=== PATIENT | female | born 1960 | race Caucasian/White ===

== ENCOUNTER 2018-08-13 16:55 | Outpatient (REF) | payer MEDICARE, MEDICAID, SELFPAY ==
[2018-08-13 19:22] LABS: HCT 37.5 % (36.0-46.0); HGB 12.6 g/dL (12.0-15.5); Mean Corp. HGB Concentration 33.6 g/dL (32.0-36.0); Mean Corpuscular Volume 95.2 fL (80-95); Mean Platelet Volume 9.1 fL (8.0-11.0); Platelet Count 266 x1000/uL (130-400); RBC 3.94 m/cumm (4.00-5.20); RBC Distribution Width 12.6 % (11.7-14.6)
[2018-08-13 19:34] LABS: Anion Gap 7.3 mmol/L (3-11); BUN 20 mg/dL (7-18); CO2 28.7 mmol/L (21.0-32.0); CREATININE 0.66 mg/dL (0.55-1.02); Calcium 8.9 mg/dL (8.5-10.1); Chloride 97 mmol/L (98-107); Glucose 127 mg/dL (70-100); Potassium 4.2 mmol/L (3.5-5.1); Sodium 133 mmol/L (136-145); TROPONIN-I 10.5 ug/mL (4.0-12.0)
[2018-08-15 14:54] LABS: Levetiracetam 13.6 mcg/mL
== END 2018-08-13 17:15 ==
LOC: NCHCN 16:55
PROVIDERS: PCP Internal Medicine; Visit Provider Nurse Practitioner Family
DX: G40.209 Localization-related (focal) (partial) symptomatic epilepsy and epileptic syndromes with complex partial seizures, not intractable, without status epilepticus (principal); Z51.81 Encounter for therapeutic drug level monitoring; Z79.899 Other long term (current) drug therapy; D72.819 Decreased white blood cell count, unspecified; E87.1 Hypo-osmolality and hyponatremia
CPT/HCPCS: 80048; 85027; 80156; 80177

== ENCOUNTER 2019-01-06 15:19 | Outpatient (REF) | payer MEDICARE, MEDICAID, SELFPAY ==
[2019-01-06 21:27] LABS: HCT 37.8 % (36.0-46.0); HGB 12.6 g/dL (12.0-15.5); Mean Corp. HGB Concentration 33.3 g/dL (32.0-36.0); Mean Corpuscular Hemoglobin 31.2 pg (27.0-33.0); Mean Corpuscular Volume 93.6 fL (80-95); Mean Platelet Volume 9.2 fL (8.0-11.0); Platelet Count 285 x1000/uL (130-400); RBC 4.04 m/cumm (4.00-5.20); RBC Distribution Width 12.5 % (11.7-14.6)
[2019-01-06 21:31] LABS: ALT 25 U/L (12-78); AST 14 U/L (15-37); Albumin 3.4 g/dL (3.4-5.0); Alkaline Phosphatase 135 U/L (46-116); Anion Gap 7.2 mmol/L (3-11); BUN 16 mg/dL (7-18); Bilirubin, Total 0.2 mg/dL (0.2-1.0); CO2 28.8 mmol/L (21.0-32.0); CREATININE 0.65 mg/dL (0.55-1.02); Calcium 8.8 mg/dL (8.5-10.1); Chloride 97 mmol/L (98-107); Glucose 96 mg/dL (70-100); Potassium 4.1 mmol/L (3.5-5.1); Sodium 133 mmol/L (136-145); TROPONIN-I 10.6 ug/mL (4.0-12.0); Total Protein 7.2 g/dL (6.4-8.2)
[2019-01-06 21:38] LABS: Folate > 20.0 ng/mL (8.6-20.0)
[2019-01-08 12:11] LABS: Homocysteine 8.5 umol/L (4.5-12.4)
[2019-01-08 16:19] LABS: Levetiracetam 17.6 mcg/mL
[2019-01-12 09:51] LABS: Methylmalonic Acid 0.23 nmol/mL (<=0.40)
== END 2019-01-06 15:39 ==
LOC: NCHCN 15:19
PROVIDERS: PCP Internal Medicine; Visit Provider Internal Medicine
DX: D72.819 Decreased white blood cell count, unspecified (principal); G40.209 Localization-related (focal) (partial) symptomatic epilepsy and epileptic syndromes with complex partial seizures, not intractable, without status epilepticus; G93.1 Anoxic brain damage, not elsewhere classified; Z51.81 Encounter for therapeutic drug level monitoring; Z79.899 Other long term (current) drug therapy
CPT/HCPCS: 80053; 80186; 83090; 85027; 80156; 80177; 82746

== ENCOUNTER 2019-03-16 15:16 | Outpatient (CLI) | payer MEDICARE, MEDICAID, SELFPAY ==
--- NOTE | 2019-03-16 11:23 | DI.RAD_ITS ---
SYMPTOM/DIAGNOSIS: RT HAND PAIN, M79.641 RIGHT HAND: There are mild degenerative changes at the first carpal metacarpal joint as well as interphalangeal joints of the fingers. No erosive or productive changes are seen. The bones appear normally mineralized. IMPRESSION: Mild degenerative changes of the interphalangeal joints of the fingers and first carpal metacarpal joint.
== END 2019-03-16 15:36 ==
PROVIDERS: PCP Internal Medicine; Visit Provider Nurse Practitioner Family
DX: M79.641 Pain in right hand (principal); M19.041 Primary osteoarthritis, right hand; M18.11 Unilateral primary osteoarthritis of first carpometacarpal joint, right hand
CPT/HCPCS: 73130

== ENCOUNTER 2019-04-30 15:19 | Outpatient (REF) | payer MEDICARE, MEDICAID, SELFPAY ==
[2019-04-30 19:33] LABS: Absolute Basophil Count 0.03 k/cumm (0.0-0.2); Absolute Eosinophil Count 0.11 k/cumm (0.0-0.7); Absolute Lymphocyte Count 0.96 k/cumm (1.2-3.4); Absolute Monocyte Count 0.49 k/cumm (0.11-0.7); Basophils % 0.9; Eosinophils % 3.4; HCT 37.3 % (36.0-46.0); HGB 12.4 g/dL (12.0-15.5); Lymphocytes % 30.1; Mean Corp. HGB Concentration 33.2 g/dL (32.0-36.0); Mean Corpuscular Hemoglobin 31.5 pg (27.0-33.0); Mean Corpuscular Volume 94.7 fL (80-95); Mean Platelet Volume 9.4 fL (8.0-11.0); Monocytes % 15.4; Neutrophils % 50.2; Platelet Count 266 x1000/uL (130-400); RBC 3.94 m/cumm (4.00-5.20); RBC Distribution Width 12.5 % (11.7-14.6); White Blood Cell Count 3.19 k/cumm (4.4-10.8)
[2019-04-30 19:36] LABS: ALT 24 U/L (12-78); AST 15 U/L (15-37); Albumin 3.4 g/dL (3.4-5.0); Alkaline Phosphatase 125 U/L (46-116); BUN 15 mg/dL (7-18); Bilirubin, Total 0.2 mg/dL (0.2-1.0); CREATININE 0.66 mg/dL (0.55-1.02); Calcium 8.2 mg/dL (8.5-10.1); Chloride 98 mmol/L (98-107); Glucose 102 mg/dL (70-100); Sodium 133 mmol/L (136-145); TROPONIN-I 10.7 ug/mL (4.0-12.0); Total Protein 7.2 g/dL (6.4-8.2)
[2019-05-03 16:21] LABS: Levetiracetam 15.3 mcg/mL
== END 2019-04-30 15:39 ==
LOC: NCHCN 15:19
PROVIDERS: PCP Internal Medicine; Visit Provider Internal Medicine
DX: G40.209 Localization-related (focal) (partial) symptomatic epilepsy and epileptic syndromes with complex partial seizures, not intractable, without status epilepticus (principal); Z51.81 Encounter for therapeutic drug level monitoring; Z79.899 Other long term (current) drug therapy; E87.1 Hypo-osmolality and hyponatremia
CPT/HCPCS: 80053; 80156; 80177; 85025

== ENCOUNTER 2019-09-30 14:36 | Outpatient (REF) | payer MEDICARE, MEDICAID, SELFPAY ==
[2019-09-30 19:01] LABS: HCT 36.7 % (36.0-46.0); HGB 12.3 g/dL (12.0-15.5); Mean Corp. HGB Concentration 33.5 g/dL (32.0-36.0); Mean Corpuscular Hemoglobin 31.6 pg (27.0-33.0); Mean Corpuscular Volume 94.3 fL (80-95); Mean Platelet Volume 9.2 fL (8.0-11.0); Platelet Count 306 x1000/uL (130-400); RBC 3.89 m/cumm (4.00-5.20); RBC Distribution Width 12.3 % (11.7-14.6); White Blood Cell Count 3.44 k/cumm (4.4-10.8)
[2019-09-30 19:27] LABS: ALT 22 U/L (14-59); AST 17 U/L (15-37); Albumin 3.4 g/dL (3.4-5.0); Alkaline Phosphatase 135 U/L (46-116); Anion Gap 7.1 mmol/L (3-11); BUN 16 mg/dL (7-18); Bilirubin, Total 0.3 mg/dL (0.2-1.0); CO2 28.9 mmol/L (21.0-32.0); CREATININE 0.55 mg/dL (0.55-1.02); Calcium 8.8 mg/dL (8.5-10.1); Chloride 98 mmol/L (98-107); Glucose 114 mg/dL (74-106); LDL CHOLESTEROL 80 mg/dL (<100); Potassium 4.2 mmol/L (3.5-5.1); Sodium 134 mmol/L (136-145); TROPONIN-I 10.8 ug/mL (4.0-12.0); TSH 1.09 uIU/mL (0.36-3.74); Total Protein 7.3 g/dL (6.4-8.2)
[2019-10-02 13:10] LABS: Levetiracetam 18.2 mcg/mL
== END 2019-09-30 14:56 ==
LOC: NCHCN 14:36
PROVIDERS: PCP Internal Medicine; Visit Provider Internal Medicine
DX: D72.819 Decreased white blood cell count, unspecified (principal); E87.1 Hypo-osmolality and hyponatremia; G40.209 Localization-related (focal) (partial) symptomatic epilepsy and epileptic syndromes with complex partial seizures, not intractable, without status epilepticus; E66.3 Overweight; Z51.81 Encounter for therapeutic drug level monitoring
CPT/HCPCS: 80053; 83721; 85027; 80156; 80177; 84443

== ENCOUNTER → 2019-10-20 08:45 | Outpatient (BNVA) | payer MEDICARE, MEDICAID, SELFPAY | PROVIDERS: PCP Internal Medicine; Referring Provider Internal Medicine; Visit Provider Psychiatry & Neurology Neurology | DX: G40.919 Epilepsy, unspecified, intractable, without status epilepticus (principal); R41.89 Other symptoms and signs involving cognitive functions and awareness; Z86.69 Personal history of other diseases of the nervous system and sense organs; E87.1 Hypo-osmolality and hyponatremia | CPT/HCPCS: 99204; 99215 ==

== ENCOUNTER 2019-11-01 01:37 | Outpatient (CLI) | payer MEDICARE, MEDICAID, SELFPAY ==
--- NOTE | 2019-11-01 | DI.MAMMO_ITS ---
EXAM: MG MAMMO SCREENING CLINICAL HISTORY: SCREENING, Z12.31 TECHNIQUE: Bilateral full field digital CC and MLO mammographic images were obtained with 3D tomosyn thesis and utilizing computer aided detection (CAD). COMPARISON: Available for comparison. FINDINGS: Masses/Architectural Distortion: None seen. Microcalcifications: No suspicious pleomorphic-type are seen. Skin Thickening/Nipple Retraction: None. IMPRESSION: 1. No significant interval change with no specific features of malignancy noted. 2. Unless there is more urgent need, screening mammography is recommended, as per [employer] guidelines. ACR BI-RAD Category- 1 Negative Breast Density - Category C - Heterogeneously dense The mammogram demonstrates the patient's breast tissue is dense. Dense breast tissue is very common a nd is not abnormal but dense breast tissue can make it harder to find cancer on a mammogram. Also, de nse breast tissue may increase their breast cancer risk. This information about the result of the [facility] mogram report was provided to the patient to raise their awareness. Use this report when you speak wi th the patient about their risks for breast cancer, which includes their family history. At that time , you may recommend for more screening tests (Ultrasound or MRI) as they might be useful based on the ir risk. A negative radiographic report should not delay biopsy if a dominant or clinically suspicious mass is present. Up to ten percent of cancers are not identified on mammography. A negative report may reinforce clinical impression. Adenosis and dense breasts may obscure an underlying neoplasm. False positive reports average 6 to 10%. Patient will receive a letter notifying them of these results.
== END 2019-11-01 01:57 ==
PROVIDERS: PCP Internal Medicine; Visit Provider Internal Medicine
DX: Z12.31 Encounter for screening mammogram for malignant neoplasm of breast (principal)
CPT/HCPCS: 77063; 77067

== ENCOUNTER 2020-03-30 20:06 | Outpatient (REF) | payer MEDICARE, MEDICAID, SELFPAY ==
[2020-03-30 19:46] LABS: HCT 38.5 % (36.0-46.0); HGB 12.8 g/dL (12.0-15.5); Mean Corp. HGB Concentration 33.2 g/dL (32.0-36.0); Mean Corpuscular Volume 93.2 fL (80-95); Mean Platelet Volume 9.3 fL (8.0-11.0); Platelet Count 284 x1000/uL (130-400); RBC 4.13 m/cumm (4.00-5.20); RBC Distribution Width 12.5 % (11.7-14.6); White Blood Cell Count 3.82 k/cumm (4.4-10.8)
[2020-03-30 20:08] LABS: ALT 24 U/L (14-59); AST 16 U/L (15-37); Albumin 3.4 g/dL (3.4-5.0); Alkaline Phosphatase 132 U/L (46-116); Bilirubin, Direct 0.09 mg/dL (0.00-0.20); Bilirubin, Total 0.3 mg/dL (0.2-1.0); Total Protein 7.2 g/dL (6.4-8.2)
[2020-03-30 20:33] LABS: Hemoglobin A1C 5.2 % (3.8-5.6)
== END 2020-03-30 20:26 ==
LOC: NCHCN 20:06
PROVIDERS: PCP Internal Medicine; Visit Provider Internal Medicine
DX: D72.819 Decreased white blood cell count, unspecified (principal); G40.209 Localization-related (focal) (partial) symptomatic epilepsy and epileptic syndromes with complex partial seizures, not intractable, without status epilepticus
CPT/HCPCS: 80076; 85027; 83036

== ENCOUNTER 2020-05-13 22:27 | Emergency (ER) | payer MEDICARE, MEDICAID, SELFPAY ==
[2020-05-13 22:33] VITALS: BP 151/85; PULSE 80; RESP 16; TEMP 36.3; O2SAT 93
--- NOTE | 2020-05-13 22:41 | ED.GENADUL_ITS ---
Discharge Plan Disposition Patient Disposition: HOME Condition: Good Discharge Details Chief Complaint: GenMedical Clinical Impression: Accidental medication error Primary Care Provider: Shankar Adame ED Provider: Shankar Irene Home Meds and New Rx's Prescriptions: Continued carbamazepine [Tegretol] 200 mg tablet 600 mg PO BID RF: 0 levetiracetam 500 mg tablet 1,000 mg PO BID RF: 0 risperidone 1 mg tablet 2 mg PO BID RF: 0 senna 8.6 mg capsule 8.6 mg PO Q OTHER DAY PRNRF: 0 diphenhydramine HCl [Benadryl] 25 MG capsule 25 - 50 mg PO Q6H PRNRF: 0 Canker-X 1 applic Topical DIRECTED PRNRF: 0 folic acid 1 MG tablet 1 mg PO DAILY RF: 0 hydrocortisone-aloe vera [Hydrocortisone Plus] 224 GM cream 1 applic Topical Q6H PRNRF: 0 ibuprofen 200 MG tablet 2 - 4 tab PO Q6H PRNRF: 0 loperamide 2 MG capsule 2 - 4 mg PO DIRECTED PRNRF: 0 Loratadine 10 MG capsule 10 mg PO QPM RF: 0 Metamucil [place] Y 575 GM powder 2 tsp PO QAM RF: 0 magnesium hydroxide [Milk of Magnesia] 30 ML suspension 5 - 15 ml PO QID PRNRF: 0 sertraline 100 MG tablet 100 mg PO QPM RF: 0 simethicone 125 MG capsule 125 mg PO QID PRNRF: 0 tea tree oil 30 ML oil 1 applic Topical BID RF: 0 triamcinolone acetonide 15 GM cream 1 applic Topical BID PRNRF: 0 acetaminophen [Mapap Extra Strength] 500 MG tablet 1,000 mg PO BID RF: 0 acetaminophen [Mapap Extra Strength] 500 MG tablet 1 - 2 tab PO Q6H PRNRF: 0 Discharge Instructions Additional Instructions: None of the medications you were given are worrisome for significant side effects. Your EKG is normal. You have remained asymptomatic after 6 hours. You may resume your medications in the morning. Follow-up with primary care as needed. Return to ED if problems. Referrals: Shankar Adame [Primary Care Provider] - Discharge Data Discharge Date/Time-TO BE ENTERED AT DEPARTURE: 05/14/20 00:55 Medical Decision Making Patient arrives after taking her own medications and another resident's medications. She has no complaints. Her mental status is normal. She has no complaints of dizziness. An EKG is obtained and is normal with no arrhythmia or interval changes. No indication for laboratory studies. Will observe till 1 AM which is 6 hours post ingestion. If no mental status changes, which would be the most likely finding given the meds she took, we will plan discharge. Patient remains awake and alert. Continues to have no complaints. No changes in mental status. Discharged back to long term and may resume morning medications. ECG Data Attestation: I personally reviewed and interpreted this ECG (s) as follows: Interpretation: see EKG for interpretation HPI General Mode of arrival: EMS . Date/Time Provider Initiated Documentation: 05/13/20 22:41 . Information obtained by: patient and EMS . HPI Narrative: Patient sent in from long term because she accidentally took not only her nighttime medications but a another resident nighttime medications. Patient did not realize that the applesauce she ate had pills in it as well. This occurred around 7 PM. Patient arrived here around 11 PM. She has no complaints. She feels fine. Patient's nighttime medications include risperidone, loratadine, Tegretol, Keppra, sertraline. The pills that she took included Synthroid, Tegretol, Risperdal, Aricept, desipramine, and simvastatin. Related Data Home Medications Medication Instructions Recorded Confirmed Canker-X 1 applic TOPICAL DIRECTED PRN 09/14/17 05/13/20 Loratadine 10 mg PO QPM 09/14/17 05/13/20 Metamucil [place] Y 2 tsp PO QAM 09/14/17 05/13/20 acetaminophen [Mapap Extra 1 - 2 tab PO Q6H PRN 09/14/17 05/13/20 Strength] acetaminophen [Mapap Extra 1,000 mg PO BID 09/14/17 05/13/20 Strength] diphenhydramine HCl [Benadryl] 25 - 50 mg PO Q6H PRN 09/14/17 05/13/20 folic acid 1 mg PO DAILY 09/14/17 05/13/20 hydrocortisone-aloe vera 1 applic TOPICAL Q6H PRN 09/14/17 05/13/20 [Hydrocortisone Plus] ibuprofen 2 - 4 tab PO Q6H PRN 09/14/17 05/13/20 loperamide 2 - 4 mg PO DIRECTED PRN 09/14/17 05/13/20 magnesium hydroxide [Milk of 5 - 15 ml PO QID PRN 09/14/17 05/13/20 Magnesia] sertraline 100 mg PO QPM 09/14/17 05/13/20 simethicone 125 mg PO QID PRN 09/14/17 05/13/20 tea tree oil 1 applic TOPICAL BID 09/14/17 05/13/20 triamcinolone acetonide 1 applic TOPICAL BID PRN 09/14/17 05/13/20 levetiracetam 500 mg tablet 1,000 mg PO BID tab 10/14/19 05/13/20 risperidone 1 mg tablet 2 mg PO BID tab 10/14/19 05/13/20 sennosides 8.6 mg capsule 8.6 mg PO Q OTHER DAY PRN cap 10/14/19 05/13/20 carbamazepine 200 mg tablet 600 mg PO BID tab 10/20/19 05/13/20 Allergies Allergy/AdvReac Type Severity Reaction Status Date / Time cephalexin AdvReac Unknown Unverified 10/20/19 09:03 General Stated Complaint: GenMedical JOEY: 3 Review of Systems Constitutional Constitutional: Denies fever(s), Denies headache(s) and Denies weakness ENT Ears, Nose, Mouth, and Throat: Denies dizziness, Denies headache(s) and Denies disequilibrium Cardiovascular Cardiovascular: Denies lightheadedness and Denies dyspnea Respiratory Respiratory: Denies cough and Denies dyspnea Gastrointestinal Gastrointestinal: Denies nausea and Denies vomiting Neurologic Neurologic: Denies behavioral changes, Denies confusion, Denies dizziness, Denies headache(s), Denies disequilibrium and Denies weakness Psychiatric Psychiatric: Denies behavioral changes and Denies confusion [facility] Medical History Chronic hyponatremia (Acute) Cognitive impairment (Acute) Dermatitis (Acute) Epilepsy, unspecified, intractable, without status epilepticus (Acute) Hirsutism (Acute) History of anoxic brain injury (Acute) Leukopenia (Acute) Osteoarthritis of right knee (Acute) Overweight (Acute) Social History Smoking/Tobacco Use Status: Never Alcohol Intake: never Drug use: Never Household members: caregiver Housing: assisted living facility current occupation: Lives at [facility] Seatbelt use: always Exam Const General: cooperative, comfortable and no acute distress Orientation: alert and oriented x3 HENMT Head: normocephalic and atraumatic Neck Neck: trachea midline and supple Resp Effort & Inspection: normal respiratory effort Cardio Pulses: radial pulses present Neuro General: patient alert, patient oriented x3 and moves all extremities Cognition: normal cognition Course Vital Signs Vital signs: Vital Signs Temperature 97.3 F L 05/13/20 22:33 Pulse 80 05/13/20 22:33 Respiratory Rate 16 05/13/20 22:33 Blood Pressure 151/85 H 05/13/20 22:33 Pulse Oximetry 93 L 05/13/20 22:33 Temperature 97.3 F L 05/13/20 22:33 Temperature Source Temporal Artery Scan 05/13/20 22:33 Pulse 80 05/13/20 22:33 Respiratory Rate 16 05/13/20 22:33 Blood Pressure 151/85 H 05/13/20 22:33 Pulse Oximetry 93 L 05/13/20 22:33 Oxygen Delivery Method Room Air 05/13/20 22:33 Oxygen Flow Rate 0 05/13/20 22:33
--- NOTE | 2020-05-13 22:45 | RT.EKG_ITS ---
APPROVED REPORT Exam: Resting ECG Patient Location: E HR:80 bpm ECG Measurements Heart Rate 80 AXIS WV 151 P 81 QRSd 89 QRS 73 QT 383 T 54 QTc 442 Conclusion Sinus rhythm...normal P axis, V-rate 60- 99 Normal Electrocardiogram
[2020-05-14 00:59] VITALS: BP 91/74; PULSE 85; RESP 19; TEMP 36.3; O2SAT 94
== END 2020-05-14 00:55 | disposition home or self-care (01) ==
PROVIDERS: Emergency Provider Emergency Medicine; PCP Internal Medicine
DX: T50.911A Poisoning by multiple unspecified drugs, medicaments and biological substances, accidental (unintentional), initial encounter (principal); R41.89 Other symptoms and signs involving cognitive functions and awareness
CPT/HCPCS: 93005; 99283; 93010

== ENCOUNTER 2020-06-13 14:52 | Outpatient (REF) | payer MEDICARE, MEDICAID, SELFPAY | END 2020-06-13 15:12 | LOC: NCHCN 14:52 | PROVIDERS: PCP Internal Medicine; Visit Provider Physician Assistant | DX: R30.0 Dysuria (principal) | CPT/HCPCS: 87086 ==

== ENCOUNTER 2020-07-06 14:35 | Outpatient (REF) | payer MEDICARE, MEDICAID, SELFPAY | END 2020-07-06 14:55 | LOC: NCHCN 14:35 | PROVIDERS: PCP Internal Medicine; Visit Provider Nurse Practitioner Family | DX: N39.0 Urinary tract infection, site not specified (principal) | CPT/HCPCS: 87086 ==